=== PATIENT | male | born 1980 | race Native Hawaiian/Other Pacific Islander ===

== ENCOUNTER 2016-11-29 14:54 | Emergency (ER) | payer SELFPAY ==
[~2016-11-29] VITALS: Ht 188 cm; Wt 104.3 kg
[2016-11-29 14:58] VITALS: BP 137/90
--- NOTE | 2016-11-29 15:10 | NUR ---
PATIENT PRESENTS TO ED WITH C/O GENERALIZED WEAKNESS DIZZINESS EMESIS DIAPHORETIC . PT STATES . DENIES N/V/D; SKIN IS PINK/WARM/DRY; AAOX4 WITH EVEN AND STEADY GAIT; LUNGS CLEAR BL; HR EVEN AND REGULAR; PT DENIES ANY FEVER, CP, SOB, OR COUGH AT THIS TIME; PATIENT STATES PAIN OF 0/10 AT THIS TIME; VSS; PATIENT POSITIONED FOR COMFORT; HOB ELEVATED; BEDRAILS UP X2; BED DOWN. ER MD MADE AWARE OF PT STATUS.
[2016-11-29] MEDS ORDERED: LORazepam 2 MG/ML VIAL IVP ONE ×2 (15:15→16:30)
[2016-11-29] MEDS ORDERED: NACL 0.9% 1,000 ML IV ONE ×2 (15:15→16:15)
[2016-11-29] MEDS ORDERED: ONDANSETRON 4 MG/2 ML VIAL IVP ONE (15:15)
--- NOTE | 2016-11-29 15:32 | NUR ---
X-Ray at bedside.
[2016-11-29 15:40] LABS: BASOPHILS # (AUTO) 0.2 K/uL (0.00-0.22); BASOPHILS % (AUTO) 1.4 % (0.0-2.0); EOSINOPHILS # (AUTO) 0.1 K/uL (0-0.4); EOSINOPHILS % (AUTO) 0.8 % (0.0-4.0); HEMATOCRIT 45.4 % (36-52); HEMOGLOBIN 15.1 g/dL (12.0-18.0); LYMPHOCYTES # (AUTO) 1.4 K/uL (2.0-11.5); LYMPHOCYTES % (AUTO) 12.6 % (20.5-51.1); MEAN CORPUSCULAR HEMOGLOBIN 29 pg (27-31); MEAN CORPUSCULAR HGB CONC 33 g/dL (33-37); MEAN CORPUSCULAR VOLUME 87 fL (80-94); MONOCYTES % (AUTO) 9.2 % (1.7-9.3); NEUTROPHILS # (AUTO) 8.6 K/uL (1.8-7.7); PLATELET COUNT (AUTO) 235 K/uL (140-450); RED BLOOD CELL COUNT(AUTO) 5.21 MIL/uL (4.20-6.10); RED CELL DISTRIBUTION WIDTH 13.1 % (11.6-13.7); WHITE BLOOD COUNT (AUTO) 11.3 K/uL (4.8-10.8)
[2016-11-29 15:56] LABS: ANION GAP 14.4 (8-16); CALCIUM 8.8 mg/dL (8.5-10.1); CARBON DIOXIDE 25.3 mmol/L (21-32); CHLORIDE 104 mmol/L (98-107); CREATININE 1.1 mg/dL (0.7-1.3); GFR ARICAN-AMERICAN 99 mL/min (>90); GFR NON ARICAN-AMERICAN 81 mL/min (>90); GLUCOSE 85 mg/dL (74-106); POTASSIUM 4.7 mmol/L (3.5-5.1); SODIUM SERUM 139 mmol/L (136-145); UREA NITROGEN, BLOOD 19 mg/dL (7-18)
[2016-11-29 16:03] LABS: ALANINE AMINOTRANSFERASE 39 U/L (16-63); ALKALINE PHOSPHATASE 92 U/L (46-116); ASPARTATE AMINOTRANSFERASE 29 U/L (15-37); CREATINE KINASE, TOTAL 700 U/L (39-308); TOTAL BILIRUBIN 0.9 mg/dL (0.0-1.0); TOTAL PROTEIN, SERUM 7.5 g/dL (6.4-8.2)
--- NOTE | 2016-11-29 16:20 | NUR ---
PT ADMITS FEELING BETTER, ENERGETIC AGAIN BUT C/O ANXIETY. PT REPEATEDLY MOVING FEET AND HANDS, UNABLE TO STAY STILL---WILL REQUEST ANXIOLYTIC
--- NOTE | 2016-11-29 16:25 | NUR ---
MD AT BEDSIDE SPEAKING WITH PT
[2016-11-29 16:34] LABS: APPEARANCE,URINE CLEAR (CLEAR); BILIRUBIN,URINE NEGATIVE (NEGATIVE); BLOOD, URINE TRACE-L (NEGATIVE); COLOR,URINE YELLOW (YELLOW); LEUKOCYTE ESTERASE ,URINE NEGATIVE (NEGATIVE); NITRITE, URINE NEGATIVE (NEGATIVE); PROTEIN,URINE TRACE (NEGATIVE); UGLUCOSE NEGATIVE (NEGATIVE); UROBILINOGEN,URINE 0.2 EU/dL (0.2 - 1)
[2016-11-29 16:41] LABS: BACTERIA,URINE 1-9 (FEW) /HPF (None Seen); RBC,URINE 0-5 (RARE) /HPF (0-5)
--- NOTE | 2016-11-29 16:46 | NUR ---
A/O X4 NO S/S RESP DISTRESS--HOLDING CONVERSATION ON CELL PHONE---DC HOME INSTRUCTION INITIATED---AWAIT IVF TO FINISH PRIOR TO DC HOME
[2016-11-29 17:10] VITALS: BP 131/88
== END 2016-11-29 17:12 | disposition home or self-care (01) ==
LOC: MED 14:54
DX: F14.90 Cocaine use, unspecified, uncomplicated (principal); M62.82 Rhabdomyolysis; E86.0 Dehydration; F10.99 Alcohol use, unspecified with unspecified alcohol-induced disorder; F17.200 Nicotine dependence, unspecified, uncomplicated; I10 Essential (primary) hypertension
CPT/HCPCS: 36415; 71010; 80053; 81001; 82550; 82553; 84484; 85025; 93005; 96361; 96374; 96375; 96376; 99285; J2060; J2405; J7030; Q0092